=== PATIENT | female | born 1935 | race Hispanic/Latino ===

== ENCOUNTER 2019-03-27 03:46 | Emergency (ER) | payer MEDICARE, BC ==
[2019-03-27] MEDS ORDERED: traMADol HCl 50 MG TAB ONE (04:51)
--- NOTE | 2019-03-27 10:48 | CT ---
CT OF THE BRAIN WITHOUT CONTRAST: DATE: 03/27/2019. FINDINGS: Atrophy is present. There is minimal compensatory dilatation of the ventricles. No intracranial ble eding or extraaxial hematoma was seen. There is a small amount of deep white matter hypolucency that is probably minor chronic ischemic changes. A soft tissue hematoma is seen in the scalp over the le ft frontal region. The underlying skull appears intact with no sign of fracture. The sphenoid sinus and mastoid air cells are clear. IMPRESSION: Atrophy and chronic ischemic changes, but no acute intracranial findings. POS: HOME
--- NOTE | 2019-03-27 11:47 | CT ---
PRELIMINARY REPORT/[facility]/EMERGENCY AFTER HOURS PROCEDURE: EXAM: CT Cervical Spine Without Contrast EXAM DATE/TIME: 03/27/2019 4:20 AM CLINICAL HISTORY: 83 years old, female; Injury or trauma; Fall; Initial encounter; Concussion /head injury TECHNIQUE: Imaging protocol: Computed tomography images of the cervical spine without contrast. COMPARISON: No relevant prior studies available. FINDINGS: Vertebrae: On axial CT images, no definite acute fracture is visible. Sagittal and coronal reconstructions show no fracture or subluxation. Prior laminectomies from C3 through C6. Moderate to severe degenerative disc changes and facet joint arthritis at several levels. Discs/Spinal canal/Neural foramina: No definite/significant disc herniation by CT, MRI could be more sensitive if clinically indicated. Thyroid: Suspect possible nodules or cysts in the right lobe of the thyroid gland, measuring up to 9- 10 mm. Lungs: Probable parenchymal and pleural scarring in the lung apices. IMPRESSION: 1. No definite acute fracture or subluxation by CT. 2. Other findings discussed above. Thank you for allowing us to participate in the care of your patient. Dictated and Authenticated by: Juan Davis MD 03/27/2019 4:49 AM Central Time ([place] & [place]) FINAL REPORT CT OF THE CERVICAL SPINE: DATE: 03/27/2019. FINDINGS: Comparison is made with an MRI of the cervical spine dated 05/26/2012. The patient has had prior laminectomies at the C3 through C6 levels. There is some mild wedging of t he C6 vertebra with resulting prominent kyphosis at the C5-C6 level. This was present before, though the degree of kyphosis has advanced slightly in the interval. The degree of anterior wedging is ignacia roximately the same. Disk space narrowing is present at C6-C7, a finding that was present before. No acute fracture was demonstrated. There is no soft tissue swelling. The C1 to dens distance is no rmal. The foramina are difficult to evaluate due to the kyphosis. There appear to be masses and/or cysts in both lobes of the thyroid gland. Ultrasound would be neede d to investigate this further, though given the patient's age, one would question if this is truly ne cessary. IMPRESSION: 1. No acute fracture is seen. Subtle fractures might be missed on this study due to the construct o f her neck. 2. Mild anterior wedging of the C6 vertebral body, longstanding. This results in a substantial kyph otic deformity around the C5-C6 level. This was also present before, though it has advanced slightly . I did not see any perched facets. 3. Thyroid masses. Report in agreement with preliminary reading by NIURKA. POS: HOME
--- NOTE | 2019-03-27 12:07 | RAD ---
PORTABLE CHEST: DATE: 03/27/2019. FINDINGS: An AP portable film at 0436 is compared with an 06/07/07 study. The heart is normal in size and the lungs are clear. No acute infiltrate or effusion was seen. Ther e is no pneumothorax, edema, or other acute change. Faint calcification is seen in the aortic arch. No gross rib fractures were noted. Calcifications are seen around each shoulder which may signify c alcific tendinitis. IMPRESSION: No acute intrathoracic findings. POS: HOME
== END 2019-03-27 05:00 | disposition home or self-care (01) ==
LOC: BURERS 03:46
DX: S00.83XA Contusion of other part of head, initial encounter (principal); S20.212A Contusion of left front wall of thorax, initial encounter; E11.9 Type 2 diabetes mellitus without complications; E78.5 Hyperlipidemia, unspecified; E78.00 Pure hypercholesterolemia, unspecified; I10 Essential (primary) hypertension; Z79.899 Other long term (current) drug therapy; M81.0 Age-related osteoporosis without current pathological fracture; M19.90 Unspecified osteoarthritis, unspecified site; W18.30XA Fall on same level, unspecified, initial encounter
CPT/HCPCS: 70450; 71045; 72125

== ENCOUNTER 2019-06-25 15:12 | Inpatient (IN) | payer MEDICARE, BC ==
[2019-06-25] MEDS ORDERED: Insulin Regular 300 UNITS/3 ML VIAL SC PRN (16:22)
[2019-06-25] MEDS ORDERED: Dextrose 50% Abboject 50 ML SYRINGE IVP PRN (16:55)
[2019-06-25] MEDS ORDERED: Dextrose 5% in Water 1,000 ML IV PRN (16:55)
[2019-06-25] MEDS ORDERED: Prevnar 13-Val Conj/PF 0.5 ML SYRINGE IM ONE (18:00)
[2019-06-25] MEDS: Dronedarone HCl 400 MG TAB PO SCH (19:40)
[2019-06-25] MEDS: Acetaminophen 500 MG TAB PO SCH ×2 (19:40→23:09)
[2019-06-25] MEDS: Atorvastatin Calcium 10 MG TAB PO SCH (20:44)
[2019-06-25] MEDS: Trospium 20 MG TAB PO SCH (20:44)
[2019-06-25] MEDS: Apixaban 5 MG TAB PO SCH (20:45)
[2019-06-25] MEDS: Donepezil HCl 10 MG TAB PO SCH (20:45)
[2019-06-25] MEDS: Senokot S 8.6-50 MG TAB PO SCH (20:46)
[2019-06-26] MEDS: Acetaminophen 500 MG TAB PO SCH ×3 (06:07→18:04)
[2019-06-26] MEDS ORDERED: Milk Of Magnesia 30 ML UDCUP PO PRN (09:26)
[2019-06-26] MEDS: Trospium 20 MG TAB PO SCH ×2 (09:53→21:03)
[2019-06-26] MEDS: FLUoxetine HCl 10 MG CAP PO SCH (09:53)
[2019-06-26] MEDS: Polyethylene Glycol 3350 17 GM Packet PO SCH (09:53)
[2019-06-26] MEDS: Senokot S 8.6-50 MG TAB PO SCH ×2 (09:54→21:04)
[2019-06-26] MEDS: Apixaban 5 MG TAB PO SCH ×2 (09:54→21:04)
[2019-06-26] MEDS ORDERED: Bisacodyl 10 MG SUPP PR PRN (09:55)
[2019-06-26] MEDS: Amlodipine 5 MG TAB PO SCH (09:55)
[2019-06-26] MEDS: Dronedarone HCl 400 MG TAB PO SCH ×2 (09:56→18:04)
[2019-06-26] MEDS: Insulin Regular 300 UNITS/3 ML VIAL SC PRN (14:34)
[2019-06-26] MEDS: Donepezil HCl 10 MG TAB PO SCH (21:03)
[2019-06-26] MEDS: Atorvastatin Calcium 10 MG TAB PO SCH (21:03)
[2019-06-27] MEDS: Acetaminophen 500 MG TAB PO SCH ×5 (00:07→23:59)
[2019-06-27] MEDS: Senokot S 8.6-50 MG TAB PO SCH ×2 (08:53→21:18)
[2019-06-27] MEDS: Polyethylene Glycol 3350 17 GM Packet PO SCH (08:53)
[2019-06-27] MEDS: FLUoxetine HCl 10 MG CAP PO SCH (08:53)
[2019-06-27] MEDS: Dronedarone HCl 400 MG TAB PO SCH ×2 (08:53→18:09)
[2019-06-27] MEDS: Amlodipine 5 MG TAB PO SCH (08:56)
[2019-06-27] MEDS: Apixaban 5 MG TAB PO SCH ×2 (08:56→21:17)
[2019-06-27] MEDS: Trospium 20 MG TAB PO SCH ×2 (08:58→21:18)
[2019-06-27] MEDS: Insulin Regular 300 UNITS/3 ML VIAL SC PRN (13:33)
[2019-06-27] MEDS: Donepezil HCl 10 MG TAB PO SCH (21:17)
[2019-06-27] MEDS: Atorvastatin Calcium 10 MG TAB PO SCH (21:17)
[2019-06-28] MEDS: Acetaminophen 500 MG TAB PO SCH ×4 (05:44→23:57)
[2019-06-28] MEDS: Polyethylene Glycol 3350 17 GM Packet PO SCH (08:40)
[2019-06-28] MEDS: FLUoxetine HCl 10 MG CAP PO SCH (08:41)
[2019-06-28] MEDS: Amlodipine 5 MG TAB PO SCH (08:42)
[2019-06-28] MEDS: Apixaban 5 MG TAB PO SCH ×2 (08:42→21:53)
[2019-06-28] MEDS: Trospium 20 MG TAB PO SCH ×2 (08:42→21:54)
[2019-06-28] MEDS: Senokot S 8.6-50 MG TAB PO SCH ×3 (08:47→21:53)
[2019-06-28] MEDS: Dronedarone HCl 400 MG TAB PO SCH ×2 (08:57→18:43)
[2019-06-28] MEDS: Insulin Regular 300 UNITS/3 ML VIAL SC PRN (18:42)
[2019-06-28] MEDS: Donepezil HCl 10 MG TAB PO SCH (21:52)
[2019-06-28] MEDS: Atorvastatin Calcium 10 MG TAB PO SCH (21:53)
--- NOTE | 2019-06-28 22:46 | RAD ---
PORTABLE CHEST: 06/28/19 An AP portable film at 2108 is compared with a 06/23 study. Mild cardiomegaly is no different than before. There is no congestive change, pleural effusion, or fo jamie pulmonary infiltrate. Arteriosclerotic change is seen in the aortic arch. A fracture of the right humeral neck is present, probably with involvement of the greater tubercle as well. Some calcificati ons are seen around the left shoulder. IMPRESSION: No acute thoracic finding. POS: HOME
[2019-06-29] MEDS: Acetaminophen 500 MG TAB PO SCH ×4 (06:46→23:46)
[2019-06-29] MEDS: Polyethylene Glycol 3350 17 GM Packet PO SCH (08:40)
[2019-06-29] MEDS: Senokot S 8.6-50 MG TAB PO SCH ×2 (08:42→21:37)
[2019-06-29] MEDS: FLUoxetine HCl 10 MG CAP PO SCH (08:42)
[2019-06-29] MEDS: Apixaban 5 MG TAB PO SCH ×2 (08:42→21:38)
[2019-06-29] MEDS: Dronedarone HCl 400 MG TAB PO SCH ×2 (08:43→17:20)
[2019-06-29] MEDS: Trospium 20 MG TAB PO SCH ×2 (08:44→21:37)
[2019-06-29] MEDS ORDERED: Prevnar 13-Val Conj/PF 0.5 ML SYRINGE IM ONE (11:00)
[2019-06-29] MEDS: Insulin Regular 300 UNITS/3 ML VIAL SC PRN (12:56)
[2019-06-29] MEDS: Donepezil HCl 10 MG TAB PO SCH (21:38)
[2019-06-29] MEDS: Atorvastatin Calcium 10 MG TAB PO SCH (21:38)
[2019-06-30] MEDS: Acetaminophen 500 MG TAB PO SCH ×4 (06:42→23:35)
[2019-06-30] MEDS: Dronedarone HCl 400 MG TAB PO SCH ×2 (08:04→18:09)
[2019-06-30] MEDS: Trospium 20 MG TAB PO SCH ×2 (08:04→21:55)
[2019-06-30] MEDS: Apixaban 5 MG TAB PO SCH ×2 (08:05→21:55)
[2019-06-30] MEDS: FLUoxetine HCl 10 MG CAP PO SCH (08:06)
[2019-06-30] MEDS: Senokot S 8.6-50 MG TAB PO SCH ×2 (08:07→21:56)
[2019-06-30] MEDS: Polyethylene Glycol 3350 17 GM Packet PO SCH (08:08)
[2019-06-30] MEDS: Donepezil HCl 10 MG TAB PO SCH (21:55)
[2019-06-30] MEDS: Atorvastatin Calcium 10 MG TAB PO SCH (21:55)
[2019-07-01] MEDS: Acetaminophen 500 MG TAB PO SCH ×4 (05:34→23:23)
[2019-07-01] MEDS: Polyethylene Glycol 3350 17 GM Packet PO SCH (08:54)
[2019-07-01] MEDS: Trospium 20 MG TAB PO SCH ×2 (08:55→20:21)
[2019-07-01] MEDS: Apixaban 5 MG TAB PO SCH ×2 (08:55→20:21)
[2019-07-01] MEDS: FLUoxetine HCl 10 MG CAP PO SCH (08:56)
[2019-07-01] MEDS: Senokot S 8.6-50 MG TAB PO SCH ×2 (08:56→20:22)
[2019-07-01] MEDS: Dronedarone HCl 400 MG TAB PO SCH ×2 (08:56→17:06)
[2019-07-01] MEDS: Donepezil HCl 10 MG TAB PO SCH (20:21)
[2019-07-01] MEDS: Atorvastatin Calcium 10 MG TAB PO SCH (20:22)
[2019-07-02] MEDS: Acetaminophen 500 MG TAB PO SCH ×4 (05:38→23:54)
[2019-07-02] MEDS: Apixaban 5 MG TAB PO SCH ×2 (09:05→21:32)
[2019-07-02] MEDS: FLUoxetine HCl 10 MG CAP PO SCH (09:07)
[2019-07-02] MEDS: Trospium 20 MG TAB PO SCH ×2 (09:07→21:34)
[2019-07-02] MEDS: Senokot S 8.6-50 MG TAB PO SCH ×2 (09:08→21:31)
[2019-07-02] MEDS: Dronedarone HCl 400 MG TAB PO SCH ×2 (09:08→16:45)
[2019-07-02] MEDS: Polyethylene Glycol 3350 17 GM Packet PO SCH (09:09)
[2019-07-02] MEDS: Insulin Regular 300 UNITS/3 ML VIAL SC PRN (17:31)
[2019-07-02] MEDS: Donepezil HCl 10 MG TAB PO SCH (21:34)
[2019-07-02] MEDS: Atorvastatin Calcium 10 MG TAB PO SCH (21:34)
[2019-07-03] MEDS: Acetaminophen 500 MG TAB PO SCH ×3 (05:53→18:03)
[2019-07-03] MEDS: Dronedarone HCl 400 MG TAB PO SCH ×2 (09:21→18:02)
[2019-07-03] MEDS: Senokot S 8.6-50 MG TAB PO SCH ×2 (09:21→21:01)
[2019-07-03] MEDS: Trospium 20 MG TAB PO SCH ×2 (09:21→21:02)
[2019-07-03] MEDS: Apixaban 5 MG TAB PO SCH ×2 (09:23→21:01)
[2019-07-03] MEDS: FLUoxetine HCl 10 MG CAP PO SCH (09:23)
[2019-07-03] MEDS: Polyethylene Glycol 3350 17 GM Packet PO SCH (09:24)
[2019-07-03] MEDS: Insulin Regular 300 UNITS/3 ML VIAL SC PRN (18:04)
[2019-07-03] MEDS: Donepezil HCl 10 MG TAB PO SCH (21:01)
[2019-07-03] MEDS: Atorvastatin Calcium 10 MG TAB PO SCH (21:02)
[2019-07-04] MEDS: Acetaminophen 500 MG TAB PO SCH ×5 (00:05→23:18)
[2019-07-04 06:27] VITALS: BMI 26.3
[2019-07-04] MEDS ORDERED: Amlodipine 5 MG TAB PO SCH (07:45)
[2019-07-04 08:01] LABS: Hemoglobin 10.1 g/dL (12.0-16.0); Platelet Count 350 thou/uL (130-400)
[2019-07-04] MEDS: Dronedarone HCl 400 MG TAB PO SCH ×2 (08:55→17:35)
[2019-07-04] MEDS: Apixaban 5 MG TAB PO SCH ×2 (08:56→21:50)
[2019-07-04] MEDS: FLUoxetine HCl 10 MG CAP PO SCH (08:56)
[2019-07-04] MEDS: Trospium 20 MG TAB PO SCH ×2 (08:57→21:50)
[2019-07-04] MEDS: Senokot S 8.6-50 MG TAB PO SCH ×2 (08:58→23:17)
[2019-07-04] MEDS: Polyethylene Glycol 3350 17 GM Packet PO SCH (08:58)
[2019-07-04] MEDS: Insulin Regular 300 UNITS/3 ML VIAL SC PRN (17:33)
[2019-07-04] MEDS: Atorvastatin Calcium 10 MG TAB PO SCH (21:51)
[2019-07-04] MEDS: Donepezil HCl 10 MG TAB PO SCH (21:51)
[2019-07-05] MEDS: Acetaminophen 500 MG TAB PO SCH ×4 (06:06→23:27)
[2019-07-05] MEDS: FLUoxetine HCl 10 MG CAP PO SCH (09:37)
[2019-07-05] MEDS: Amlodipine 5 MG TAB PO SCH (09:37)
[2019-07-05] MEDS: Trospium 20 MG TAB PO SCH ×2 (09:40→21:36)
[2019-07-05] MEDS: Dronedarone HCl 400 MG TAB PO SCH ×2 (09:40→18:02)
[2019-07-05] MEDS: Apixaban 5 MG TAB PO SCH ×2 (09:40→21:37)
[2019-07-05] MEDS: Polyethylene Glycol 3350 17 GM Packet PO SCH (09:41)
[2019-07-05] MEDS: Senokot S 8.6-50 MG TAB PO SCH ×2 (09:41→21:37)
[2019-07-05 18:15] LABS: Bilirubin Negative (Negative); Blood, Urine Trace (Negative); Clarity Cloudy (Clear); Glucose, Urine (Dipstick) Negative (Negative); Leukocyte Large (Negative); Nitrite Positive (Negative); Protein, Urine (Dipstick) 30 mg/dL (Neg-Trace); Urobilinogen 0.2 mg/dL (Less than 2)
[2019-07-05 18:23] LABS: RBC/HPF 0-3 HPF (0-3)
[2019-07-05 18:24] LABS: Bacteria/HPF 4+ HPF (None Seen); Squamous Epithelial 0-3 HPF (0-3); WBC/HPF 21-50 HPF (0-3)
[2019-07-05 18:25] LABS: Urine Culture Reflex Yes Yes
[2019-07-05] MEDS: Donepezil HCl 10 MG TAB PO SCH (21:36)
[2019-07-05] MEDS: Atorvastatin Calcium 10 MG TAB PO SCH (21:36)
[2019-07-06] MEDS: Acetaminophen 500 MG TAB PO SCH ×3 (05:49→17:59)
[2019-07-06] MEDS: Amlodipine 5 MG TAB PO SCH (10:05)
[2019-07-06] MEDS: Apixaban 5 MG TAB PO SCH ×2 (10:07→21:27)
[2019-07-06] MEDS: Polyethylene Glycol 3350 17 GM Packet PO SCH (10:07)
[2019-07-06] MEDS: Trospium 20 MG TAB PO SCH ×2 (10:07→21:27)
[2019-07-06] MEDS: Dronedarone HCl 400 MG TAB PO SCH ×2 (10:08→17:59)
[2019-07-06] MEDS: FLUoxetine HCl 10 MG CAP PO SCH (10:09)
[2019-07-06] MEDS: Senokot S 8.6-50 MG TAB PO SCH ×2 (10:10→21:28)
[2019-07-06] MEDS: Insulin Regular 300 UNITS/3 ML VIAL SC PRN ×2 (13:08→21:29)
[2019-07-06] MEDS: Ibuprofen 200 MG TAB PO PRN (15:36)
[2019-07-06] MEDS: Donepezil HCl 10 MG TAB PO SCH (21:27)
[2019-07-06] MEDS: Atorvastatin Calcium 10 MG TAB PO SCH (21:28)
[2019-07-06] MEDS: Sulfameth/Trimethoprim DS 800-160mg TAB PO SCH (21:28)
[2019-07-07] MEDS: Acetaminophen 500 MG TAB PO SCH ×4 (00:11→17:19)
[2019-07-07] MEDS: Polyethylene Glycol 3350 17 GM Packet PO SCH (10:17)
[2019-07-07] MEDS: Senokot S 8.6-50 MG TAB PO SCH ×2 (10:18→20:52)
[2019-07-07] MEDS: Trospium 20 MG TAB PO SCH ×2 (10:18→20:52)
[2019-07-07] MEDS: FLUoxetine HCl 10 MG CAP PO SCH (10:18)
[2019-07-07] MEDS: Dronedarone HCl 400 MG TAB PO SCH ×2 (10:18→17:19)
[2019-07-07] MEDS: Amlodipine 5 MG TAB PO SCH (10:19)
[2019-07-07] MEDS: Sulfameth/Trimethoprim DS 800-160mg TAB PO SCH ×2 (10:20→20:52)
[2019-07-07] MEDS: Apixaban 5 MG TAB PO SCH ×2 (10:20→20:52)
[2019-07-07] MEDS: Atorvastatin Calcium 10 MG TAB PO SCH (20:52)
[2019-07-07] MEDS: Donepezil HCl 10 MG TAB PO SCH (20:52)
[2019-07-08] MEDS: Acetaminophen 500 MG TAB PO SCH ×4 (00:14→17:31)
[2019-07-08] MEDS: Senokot S 8.6-50 MG TAB PO SCH ×2 (09:13→20:58)
[2019-07-08] MEDS: Amlodipine 5 MG TAB PO SCH (09:13)
[2019-07-08] MEDS: Dronedarone HCl 400 MG TAB PO SCH ×2 (09:14→17:31)
[2019-07-08] MEDS: Trospium 20 MG TAB PO SCH ×2 (09:15→20:59)
[2019-07-08] MEDS: Sulfameth/Trimethoprim DS 800-160mg TAB PO SCH ×2 (09:15→20:59)
[2019-07-08] MEDS: Apixaban 5 MG TAB PO SCH ×2 (09:15→20:59)
[2019-07-08] MEDS: FLUoxetine HCl 10 MG CAP PO SCH (09:16)
[2019-07-08] MEDS: Polyethylene Glycol 3350 17 GM Packet PO SCH (09:17)
[2019-07-08] MEDS: Donepezil HCl 10 MG TAB PO SCH (20:59)
[2019-07-08] MEDS: Atorvastatin Calcium 10 MG TAB PO SCH (20:59)
[2019-07-09] MEDS: Acetaminophen 500 MG TAB PO SCH ×5 (00:45→23:27)
[2019-07-09] MEDS ORDERED: Amlodipine 5 MG TAB ONE (09:03)
[2019-07-09] MEDS: Polyethylene Glycol 3350 17 GM Packet PO SCH (09:36)
[2019-07-09] MEDS: Sulfameth/Trimethoprim DS 800-160mg TAB PO SCH ×2 (09:38→21:03)
[2019-07-09] MEDS: Amlodipine 5 MG TAB PO SCH (09:38)
[2019-07-09] MEDS: Trospium 20 MG TAB PO SCH ×2 (09:38→21:02)
[2019-07-09] MEDS: Senokot S 8.6-50 MG TAB PO SCH ×2 (09:38→21:02)
[2019-07-09] MEDS: FLUoxetine HCl 10 MG CAP PO SCH (09:38)
[2019-07-09] MEDS: Apixaban 5 MG TAB PO SCH ×2 (09:39→21:02)
[2019-07-09] MEDS: Dronedarone HCl 400 MG TAB PO SCH ×2 (09:40→17:44)
[2019-07-09] MEDS: Ibuprofen 200 MG TAB PO PRN (15:40)
[2019-07-09] MEDS: Atorvastatin Calcium 10 MG TAB PO SCH (21:02)
[2019-07-09] MEDS: Donepezil HCl 10 MG TAB PO SCH (21:02)
[2019-07-10] MEDS: Acetaminophen 500 MG TAB PO SCH ×4 (06:27→23:28)
[2019-07-10] MEDS ORDERED: Amlodipine 5 MG TAB ONE (09:42)
[2019-07-10] MEDS: Polyethylene Glycol 3350 17 GM Packet PO SCH (10:10)
[2019-07-10] MEDS: FLUoxetine HCl 10 MG CAP PO SCH (10:11)
[2019-07-10] MEDS: Apixaban 5 MG TAB PO SCH ×2 (10:11→20:40)
[2019-07-10] MEDS: Trospium 20 MG TAB PO SCH ×2 (10:11→20:39)
[2019-07-10] MEDS: Dronedarone HCl 400 MG TAB PO SCH ×2 (10:12→18:05)
[2019-07-10] MEDS: Sulfameth/Trimethoprim DS 800-160mg TAB PO SCH ×2 (10:12→20:40)
[2019-07-10] MEDS: Senokot S 8.6-50 MG TAB PO SCH ×2 (10:13→20:39)
[2019-07-10] MEDS: Amlodipine 5 MG TAB PO SCH (10:13)
[2019-07-10] MEDS: Atorvastatin Calcium 10 MG TAB PO SCH (20:40)
[2019-07-10] MEDS: Donepezil HCl 10 MG TAB PO SCH (20:40)
[2019-07-11] MEDS: Acetaminophen 500 MG TAB PO SCH ×3 (06:04→18:57)
[2019-07-11] MEDS: Dronedarone HCl 400 MG TAB PO SCH ×2 (08:59→18:56)
[2019-07-11] MEDS: Sulfameth/Trimethoprim DS 800-160mg TAB PO SCH ×2 (09:00→21:36)
[2019-07-11] MEDS: Apixaban 5 MG TAB PO SCH ×2 (09:00→21:37)
[2019-07-11] MEDS: Trospium 20 MG TAB PO SCH ×2 (09:01→21:36)
[2019-07-11] MEDS: FLUoxetine HCl 10 MG CAP PO SCH (09:02)
[2019-07-11] MEDS: Senokot S 8.6-50 MG TAB PO SCH ×2 (09:02→21:38)
[2019-07-11] MEDS: Polyethylene Glycol 3350 17 GM Packet PO SCH (09:03)
[2019-07-11] MEDS ORDERED: Amlodipine 5 MG TAB ONE (10:25)
[2019-07-11] MEDS: Amlodipine 5 MG TAB PO SCH (12:26)
[2019-07-11] MEDS: Cephalexin 250 MG CAP PO SCH (21:36)
[2019-07-11] MEDS: Atorvastatin Calcium 10 MG TAB PO SCH (21:36)
[2019-07-11] MEDS: Donepezil HCl 10 MG TAB PO SCH (21:36)
[2019-07-12] MEDS: Acetaminophen 500 MG TAB PO SCH ×4 (00:14→17:37)
[2019-07-12] MEDS: Ibuprofen 200 MG TAB PO PRN (09:15)
[2019-07-12] MEDS: Senokot S 8.6-50 MG TAB PO SCH ×2 (10:56→21:59)
[2019-07-12] MEDS: Cephalexin 250 MG CAP PO SCH ×3 (10:56→21:36)
[2019-07-12] MEDS: FLUoxetine HCl 10 MG CAP PO SCH (10:56)
[2019-07-12] MEDS: Trospium 20 MG TAB PO SCH ×2 (10:56→21:37)
[2019-07-12] MEDS: Apixaban 5 MG TAB PO SCH ×2 (10:57→21:37)
[2019-07-12] MEDS: Dronedarone HCl 400 MG TAB PO SCH ×2 (10:59→17:32)
[2019-07-12] MEDS: Amlodipine 5 MG TAB PO SCH (10:59)
[2019-07-12] MEDS: Sulfameth/Trimethoprim DS 800-160mg TAB PO SCH ×2 (11:00→21:37)
[2019-07-12] MEDS: Polyethylene Glycol 3350 17 GM Packet PO SCH (11:00)
[2019-07-12] MEDS: Insulin Regular 300 UNITS/3 ML VIAL SC PRN (17:57)
[2019-07-12] MEDS: Atorvastatin Calcium 10 MG TAB PO SCH (21:37)
[2019-07-12] MEDS: Donepezil HCl 10 MG TAB PO SCH (21:37)
[2019-07-13] MEDS: Acetaminophen 500 MG TAB PO SCH ×5 (00:10→23:11)
[2019-07-13] MEDS: Dronedarone HCl 400 MG TAB PO SCH ×2 (08:41→18:01)
[2019-07-13] MEDS: Trospium 20 MG TAB PO SCH ×2 (08:43→21:14)
[2019-07-13] MEDS: Sulfameth/Trimethoprim DS 800-160mg TAB PO SCH ×2 (08:43→21:14)
[2019-07-13] MEDS: Amlodipine 5 MG TAB PO SCH (08:43)
[2019-07-13] MEDS: FLUoxetine HCl 10 MG CAP PO SCH (08:43)
[2019-07-13] MEDS: Apixaban 5 MG TAB PO SCH ×2 (08:44→21:14)
[2019-07-13] MEDS: Floranex Packet PO SCH (08:45)
[2019-07-13] MEDS: Cephalexin 250 MG CAP PO SCH ×3 (08:45→21:14)
[2019-07-13] MEDS: Senokot S 8.6-50 MG TAB PO SCH ×2 (09:30→21:14)
[2019-07-13] MEDS: Polyethylene Glycol 3350 17 GM Packet PO SCH (09:30)
[2019-07-13] MEDS: Insulin Regular 300 UNITS/3 ML VIAL SC PRN (17:50)
[2019-07-13] MEDS: Atorvastatin Calcium 10 MG TAB PO SCH (21:14)
[2019-07-13] MEDS: Donepezil HCl 10 MG TAB PO SCH (21:14)
[2019-07-14 05:28] LABS: Hemoglobin 10.1 g/dL (12.0-16.0); Platelet Count 313 thou/uL (130-400)
[2019-07-14] MEDS: Acetaminophen 500 MG TAB PO SCH ×3 (05:39→17:59)
[2019-07-14] MEDS: FLUoxetine HCl 10 MG CAP PO SCH (08:55)
[2019-07-14] MEDS: Dronedarone HCl 400 MG TAB PO SCH ×2 (08:55→17:59)
[2019-07-14] MEDS: Trospium 20 MG TAB PO SCH ×2 (08:55→20:47)
[2019-07-14] MEDS: Cephalexin 250 MG CAP PO SCH ×3 (08:55→20:48)
[2019-07-14] MEDS: Floranex Packet PO SCH (08:56)
[2019-07-14] MEDS: Amlodipine 5 MG TAB PO SCH (08:56)
[2019-07-14] MEDS: Apixaban 5 MG TAB PO SCH ×2 (08:57→20:47)
[2019-07-14] MEDS: Polyethylene Glycol 3350 17 GM Packet PO SCH (09:08)
[2019-07-14] MEDS: Senokot S 8.6-50 MG TAB PO SCH ×2 (09:08→20:48)
[2019-07-14] MEDS: Donepezil HCl 10 MG TAB PO SCH (20:47)
[2019-07-14] MEDS: Atorvastatin Calcium 10 MG TAB PO SCH (20:48)
[2019-07-15] MEDS: Acetaminophen 500 MG TAB PO SCH ×4 (00:25→18:10)
[2019-07-15] MEDS: Trospium 20 MG TAB PO SCH ×2 (09:34→20:42)
[2019-07-15] MEDS: Dronedarone HCl 400 MG TAB PO SCH ×2 (09:34→18:09)
[2019-07-15] MEDS: Amlodipine 5 MG TAB PO SCH (09:35)
[2019-07-15] MEDS: Apixaban 5 MG TAB PO SCH ×2 (09:35→20:42)
[2019-07-15] MEDS: FLUoxetine HCl 10 MG CAP PO SCH (09:36)
[2019-07-15] MEDS: Senokot S 8.6-50 MG TAB PO SCH ×2 (09:37→20:43)
[2019-07-15] MEDS: Polyethylene Glycol 3350 17 GM Packet PO SCH (09:38)
[2019-07-15] MEDS: Floranex Packet PO SCH (09:39)
[2019-07-15] MEDS: Insulin Regular 300 UNITS/3 ML VIAL SC PRN (12:05)
[2019-07-15] MEDS: Atorvastatin Calcium 10 MG TAB PO SCH (20:43)
[2019-07-15] MEDS: Donepezil HCl 10 MG TAB PO SCH (20:43)
[2019-07-16] MEDS: Acetaminophen 500 MG TAB PO SCH ×4 (00:52→17:49)
[2019-07-16] MEDS: Floranex Packet PO SCH (08:38)
[2019-07-16] MEDS: FLUoxetine HCl 10 MG CAP PO SCH (08:39)
[2019-07-16] MEDS: Trospium 20 MG TAB PO SCH ×2 (08:39→20:47)
[2019-07-16] MEDS: Dronedarone HCl 400 MG TAB PO SCH ×2 (08:40→17:49)
[2019-07-16] MEDS: Apixaban 5 MG TAB PO SCH ×2 (08:41→20:47)
[2019-07-16] MEDS: Amlodipine 5 MG TAB PO SCH (08:41)
[2019-07-16] MEDS: Polyethylene Glycol 3350 17 GM Packet PO SCH (08:51)
[2019-07-16] MEDS: Senokot S 8.6-50 MG TAB PO SCH ×2 (08:51→20:48)
[2019-07-16] MEDS: Insulin Regular 300 UNITS/3 ML VIAL SC PRN (14:07)
[2019-07-16] MEDS: Atorvastatin Calcium 10 MG TAB PO SCH (20:47)
[2019-07-16] MEDS: Donepezil HCl 10 MG TAB PO SCH (20:49)
[2019-07-17] MEDS: Acetaminophen 500 MG TAB PO SCH ×4 (03:36→17:12)
[2019-07-17] MEDS: Floranex Packet PO SCH (08:30)
[2019-07-17] MEDS: Trospium 20 MG TAB PO SCH ×2 (08:31→21:25)
[2019-07-17] MEDS: Apixaban 5 MG TAB PO SCH ×2 (08:31→21:25)
[2019-07-17] MEDS: FLUoxetine HCl 10 MG CAP PO SCH (08:31)
[2019-07-17] MEDS: Amlodipine 5 MG TAB PO SCH (08:32)
[2019-07-17] MEDS: Dronedarone HCl 400 MG TAB PO SCH ×2 (08:33→17:11)
[2019-07-17] MEDS: Polyethylene Glycol 3350 17 GM Packet PO SCH (08:34)
[2019-07-17] MEDS: Senokot S 8.6-50 MG TAB PO SCH ×2 (08:34→21:28)
[2019-07-17] MEDS: Atorvastatin Calcium 10 MG TAB PO SCH (21:27)
[2019-07-17] MEDS: Donepezil HCl 10 MG TAB PO SCH (21:28)
[2019-07-18] MEDS: Acetaminophen 500 MG TAB PO SCH ×3 (00:05→12:59)
[2019-07-18] MEDS: Floranex Packet PO SCH (08:59)
[2019-07-18] MEDS: Apixaban 5 MG TAB PO SCH (09:04)
[2019-07-18] MEDS: FLUoxetine HCl 10 MG CAP PO SCH (09:04)
[2019-07-18] MEDS: Dronedarone HCl 400 MG TAB PO SCH (09:05)
[2019-07-18] MEDS: Amlodipine 5 MG TAB PO SCH (09:06)
[2019-07-18] MEDS: Trospium 20 MG TAB PO SCH (09:07)
[2019-07-18] MEDS: Senokot S 8.6-50 MG TAB PO SCH (09:08)
[2019-07-18] MEDS: Polyethylene Glycol 3350 17 GM Packet PO SCH (09:08)
[2019-07-18] MEDS: Insulin Regular 300 UNITS/3 ML VIAL SC PRN (12:59)
[2019-07-18 13:58] VITALS: BP 151/67; TEMP 98.7
--- NOTE | 2019-07-19 09:59 | DIS ---
DATE OF ADMISSION: 07/01/2019 DATE OF DISCHARGE: 07/18/2019 ADMISSION DIAGNOSES: 1. Right intertrochanteric femur fracture, status post intramedullary nailing. 2. Right humerus fracture, status post fall. 3. Atrial fibrillation. 4. Hypertension. 5. Urinary retention. 6. Physical deconditioning. 7. Dementia. 8. Constipation. 9. Type 2 diabetes mellitus. 10. Dyslipidemia. PROCEDURES: None. HOSPITAL COURSE: This 83-year-old female with underlying dementia, status post fall with resultant admission to [facility] in [place], where imaging revealed fractures of her proximal humerus and right intertrochanteric femur. She is status post ORIF of the right femur via Dr. Fontana on 06/20/2019. She did have cardiac postop complications including atrial fibrillation with RVR, for which her medications were optimized. After being stabilized, she transitioned here for physical therapy and occupational therapy secondary to her deconditioned state. She was sent with orthopedic limitations including partial weightbearing 50% in the right upper extremity and advised to wear her sling for comfort. Her beth were removed during her stay and her surgical sites are clean and dry and healing well. Overall, the patient has expressed a lack of motivation during her stay and has had limited improvement in her functional status. Options going forward were addressed with the family including senior care placement. However, the preference is to proceed with 24/7 home care along with [facility] for further therapy. Secondary to the patient's physical limitations, she has been set up with a Kristen lift and hospital bed to aid home care. At this time, she is appropriate for discharge home and family is amenable to the plan of care. DISPOSITION: The patient was discharged home to live with family and has [facility] for further physical therapy and occupational therapy. She may follow up with her primary care provider, Dr. Aviles in a week. She may also follow up with her orthopedic surgeon, Dr. Fontana as directed. DISCHARGE MEDICATIONS: Include; 1. Tylenol q.6 hours p.r.n. 2. Amlodipine 5 mg daily. 3. Eliquis 2.5 mg b.i.d. 4. Aricept 10 mg at bedtime. 5. Multaq 200 mg b.i.d. 6. Fluoxetine 20 mg daily. 7. Metoprolol 25 mg daily. 8. Senokot 8.6 mg/50 mg b.i.d. as needed. 9. Zocor 40 mg at bedtime. 10. Tolterodine tartrate 4 mg extended release at bedtime. Job ID: [id number]
--- NOTE | 2019-07-28 00:17 | PQF ---
[employer] Install[employer] Winform ViewerCORTEZ BIN SANCHEZ SANIA ANDERSON [id number] CLINICAL DOCUMENTATION CLARIFICATION FORM: POST DISCHARGE Addendum to original discharge summary date: ____07/18/19 Late entry note date: 07/28/19 Date: 07/28/2019 ATTN: SANIA ANDERSON Please exercise your independent, professional judgment in responding to the clarification form. Clinical indicators are provided on the bottom of this form for your review Please check appropriate box(s): [x ] Protein Calorie Malnutrition: [ x ] Mild [ ] Moderate [ ] Severe [ ] Other Malnutrition (please specify) __ [ ] Underweight without malnutrition [ ] Cachexia [ ] Other diagnosis [ ] Unable to determine In addition, please specify: Present on Admission (POA): [ x ] Yes [ ] No [ ] Unable to determine CLINICAL INDICATORS - SIGNS / SYMPTOMS / LABS BMI of __26.3 Protein Calorie Malnutrition - Documented in scanned PNs on 06/28 pg#8 Physical Deconditioning - Documented in DS on 07/01 by SANIA ANDERSON Low Hgb level 10.1 on 07/04 - Documented in Laboratory RISK FACTORS HTN DM status post intramedullary nailing fracture care - Documented in DS on 07/01 by SANIA ANDERSON TREATMENT: Supplement ensure - Documented in scanned PNs on 06/28 pg#8 PT , OT Moderate Malnutrition (in acute illness) Energy Intake: <75% of estimated energy requirement for > 7 days Weight Loss: 1-2%/1 week; 5%/ 1 month; 7.5%/3 months Other: mild body fat loss; mild muscle mass loss; mild fluid accumulation; Severe Malnutrition (in acute illness) Energy Intake: < 50% of estimated energy requirement for > 5 days Weight Loss: >1-2%/1 week; >5%/1 month; >7.5%/3 months Other: moderate body fat loss; moderate muscle mass loss; moderate- severe fluid accumulation; measurably [employer] 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 Moderate Malnutrition (in chronic illness) Energy Intake: <75% of estimated energy requirement for >1 month Weight Loss: 5%/1 month; 7.5%/3 months; 10%/6 months; 20%/1 year Other: mild body fat loss; mild muscle mass loss; mild fluid accumulation Severe Malnutrition (in chronic illness) Energy Intake: <75% of estimated energy requirement for >1 month Weight Loss: >5%/1 month; >7.5%/3 months; >10%/6 months; >20%/1 year Other: severe body fat loss; severe muscle mass loss; severe fluid accumulation ; measurably reduced milk processing worker strength (This form is maintained as a part of the permanent medical record) 2014 [employer]. All Rights Reserved [email or web address] [not provided] [email or web address]
== END 2019-07-18 13:35 | disposition home or self-care (01) | DRG 560 ==
LOC: UNDOADMIN 15:34 → BURMED 15:34
PROVIDERS: ADMIT Family Medicine; ATTEND Family Medicine
DX: Z47.89 Encounter for other orthopedic aftercare (principal); I97.191 Other postprocedural cardiac functional disturbances following other surgery; N39.0 Urinary tract infection, site not specified; T81.49XA Infection following a procedure, other surgical site, initial encounter; L03.115 Cellulitis of right lower limb; E44.1 Mild protein-calorie malnutrition; S72.101D Unspecified trochanteric fracture of right femur, subsequent encounter for closed fracture with routine healing; I48.91 Unspecified atrial fibrillation; I10 Essential (primary) hypertension; R53.81 Other malaise; F03.90 Unspecified dementia, unspecified severity, without behavioral disturbance, psychotic disturbance, mood disturbance, and anxiety; K59.00 Constipation, unspecified; E11.9 Type 2 diabetes mellitus without complications; E78.5 Hyperlipidemia, unspecified; W19.XXXD Unspecified fall, subsequent encounter; Y83.8 Other surgical procedures as the cause of abnormal reaction of the patient, or of later complication, without mention of misadventure at the time of the procedure; Z90.710 Acquired absence of both cervix and uterus; Z98.49 Cataract extraction status, unspecified eye; Z68.23 Body mass index [BMI] 23.0-23.9, adult
CPT/HCPCS: 36415; 36416; 71045; 81001; 85014; 85018; 85049; 87086; 90471; 90670; A4353; G0009; J1815